=== PATIENT | male | born 1995 | race Caucasian/White ===

== ENCOUNTER 2018-03-28 13:57 | Emergency (ER) | payer BC ==
[2018-03-28 14:22] VITALS: BP 120/70
--- NOTE | 2018-03-28 14:54 | UC ---
Skin Complaint HPI - HPI Summary HPI Summary: Pt c/o left ear swelling, tenderness, blisters with yello wdischarge s/p being stung by bee yesterday. - History of Current Complaint Chief Complaint: UCEar Time Seen by Provider: 03/28/18 14:33 Stated Complaint: LEFT EAR CONCERN Hx Obtained From: Patient Onset/Duration: Gradual Onset, Lasting Days, Still Present, Worse Since - onset Skin Exposure Onset/Duration: Days Ago - 1 Onset Severity: Mild Current Severity: Mild Pain Intensity: 2 Location: Ear (Left) Character: Pain, Redness Aggravating Factor(s): Touch Alleviating Factor(s): Unknown Associated Signs & Symptoms: Positive: Drainage, Tenderness Related History: Insect Bite/Sting - Allergy/Home Medications Allergies/Adverse Reactions: Allergies Allergy/AdvReac Type Severity Reaction Status Date / Time No Known Allergies Allergy Verified 03/28/18 14:22 Review of Systems Constitutional: Negative Skin: Other - erythema, yellow crusted drainage, Eyes: Negative ENT: Other - left ear swelling, outer pinna Respiratory: Negative Cardiovascular: Negative Gastrointestinal: Negative Genitourinary: Negative Motor: Negative Neurovascular: Negative Musculoskeletal: Negative Neurological: Negative Psychological: Negative Is Patient Immunocompromised?: No All Other Systems Reviewed And Are Negative: Yes PMH/Surg Hx/FS Hx/Imm Hx Previously Healthy: Yes - Surgical History Surgical History: None - Family History Known Family History: Positive: Cardiac Disease - Social History Occupation: Employed Full-time Lives: With Family Alcohol Use: Occasionally Substance Use Type: None Smoking Status (MU): Former Smoker Have You Smoked in the Last Year: Yes When Did the Patient Quit Smoking/Using Tobacco: 06/2017 - Immunization History Most Recent Tetanus Shot: about 2009 Physical Exam Triage Information Reviewed: Yes Appearance: Well-Appearing Vital Signs: Initial Vital Signs Temp 98.1 F 03/28/18 14:12 Pulse 54 03/28/18 14:12 Resp 18 03/28/18 14:12 BP 120/70 03/28/18 14:12 Pulse Ox 99 03/28/18 14:12 Vital Signs Reviewed: Yes Eye Exam: Normal ENT Exam: Other - left upper, outer pinna, mild erythema, mild swellig with draining yellow crusted drainage. Dental Exam: Normal Neck exam: Normal Respiratory Exam: Normal Cardiovascular Exam: Normal Musculoskeletal Exam: Normal Neurological Exam: Normal Psychological Exam: Normal Skin Exam: Other - mild erythema, left outer upper pinna, crusted dried, yellow clear fluid, few blisters in tact, few ruptured with dried serous, yellow Course/Dx - Differential Diagnoses - Skin Complaint Differential Diagnoses: Cellulitis, Impetigo - Diagnoses Provider Diagnoses: insect bite. cellulitis Discharge - Sign-Out/Discharge Documenting (check all that apply): Patient Departure - Discharge Plan Condition: Stable Disposition: HOME Prescriptions: Cephalexin CAP* [Keflex 500 CAP*] 500 mg PO Q12H #10 cap Cetirizine* [ZyrTEC 10 MG TAB*] 10 mg PO DAILY #5 tab Patient Education Materials: Cellulitis (ED), Insect Bite or Sting (ED) Forms: *Work Release Referrals: Renetta Browne MD [Primary Care Provider] - If Needed Additional Instructions: Per institutional requirements, I have reviewed the chart, however, I was not consulted specifically or made aware of this patient by the above midlevel provider. I did not personally evaluate, interact with , or disposition this patient. - Billing Disposition and Condition Condition: STABLE Disposition: Home
== END 2018-03-28 15:04 | disposition home or self-care (01) ==
LOC: UCCORT 13:57
DX: T63.441A Toxic effect of venom of bees, accidental (unintentional), initial encounter (principal); Y92.9 Unspecified place or not applicable; H60.12 Cellulitis of left external ear; L01.00 Impetigo, unspecified; Z87.891 Personal history of nicotine dependence
CPT/HCPCS: 99202; G0463